=== PATIENT | male | born 1955 | race Two or more races ===

== ENCOUNTER 2018-06-04 07:40 | Day surgery (SDC) | payer OTHER | END 2018-06-04 12:37 | disposition home or self-care (01) | LOC: AMB-ENDOS 07:40 | DX: K63.5 Polyp of colon (principal); Z12.11 Encounter for screening for malignant neoplasm of colon ==

== ENCOUNTER 2018-10-09 07:32 | Outpatient (CLI) | payer OTHER | END 2018-10-09 07:56 | disposition home or self-care (01) | LOC: LAB 07:32 | DX: E11.8 Type 2 diabetes mellitus with unspecified complications (principal); R73.01 Impaired fasting glucose; R94.5 Abnormal results of liver function studies ==

== ENCOUNTER → 2020-05-09 | Outpatient (CLI) | payer OTHER | END | disposition home or self-care (01) | LOC: MAMO-SONO 08:45 → SONOGRAMA 09:15 | PROVIDERS: ATTEND Orthopaedic Surgery | DX: M77.12 Lateral epicondylitis, left elbow (principal); M25.522 Pain in left elbow ==

== ENCOUNTER 2022-12-08 12:27 | Emergency (ER) | payer OTHER ==
[~2022-12-08] VITALS: Ht 177.8 cm; Wt 117.9 kg
[2022-12-08] MEDS ORDERED: OZEMPIC1 MG/0.71 SQ (12:31)
[2022-12-08] MEDS ORDERED: ALPRAZOLAM2 MG PO (12:31)
[2022-12-08] MEDS ORDERED: METOPROLOL SUCC50 MG PO (12:31)
== END 2022-12-08 15:36 | disposition home or self-care (01) ==
LOC: ER 12:27
DX: U07.1 COVID-19 (principal); J06.9 Acute upper respiratory infection, unspecified; Z88.8 Allergy status to other drugs, medicaments and biological substances